=== PATIENT | female | born 1990 | race Caucasian/White ===

== ENCOUNTER 2025-05-31 06:39 | Inpatient (IN) | payer OTHER ==
[~2025-05-31] VITALS: Ht 152.4 cm; Wt 64.4 kg
[2025-05-31 06:45] VITALS: O2SAT 99
[2025-05-31 07:27] LABS: BASOPHILS % 0.2 % (0.0-2.0); EOSINOPHILS % 0.1 % (0.0-5.0); HEMATOCRIT. 34.2 % (36.0-48.0); HEMOGLOBIN. 11.6 g/dL (12.0-16.0); LYMPHOCYTES % 15.3 % (20.0-50.0); MEAN PLATELET VOLUME 7.9 fl (7.4-10.4); MONOCYTES % 3.6 % (2.0-8.0); NEUTROPHILS % 80.8 % (40.0-76.0); PLATELET 333 x1000/uL (130-400); RED BLOOD CELL COUNT 3.82 mill/uL (4.2-5.4); RED CELL DISTRIBUTION WIDTH 13.8 % (11.6-14.6)
[2025-05-31] MEDS: MECLIZINE 25MG TABLET PO ONE (07:28)
[2025-05-31] MEDS: ONDANSETRON 4MG ODT PO ONE (07:28)
[2025-05-31 07:41] LABS: CREATININE 0.7 mg/dL (0.6-1.0); UREA NITROGEN BLOOD 9 mg/dL (9-23)
[2025-05-31 07:43] LABS: ASPARTATE AMINOTRANSFERASE 21 IU/L (<34); BILIRUBIN TOTAL 0.3 mg/dL (0.1-1.0)
[2025-05-31 07:44] LABS: HCG SCREEN NEGATIVE; PROTEIN TOTAL 7.1 g/dL (6.0-8.3)
[2025-05-31 10:45] VITALS: BP 111/68; PULSE 51; RESP 20; TEMP 36.5848
[2025-05-31] MEDS ORDERED: ACETAMINOPHEN 325MG TABLET PO PRN (11:30)
[2025-05-31] MEDS ORDERED: ONDANSETRON HCL 4MG/2ML INJ IV PRN (11:30)
[2025-05-31 12:00] VITALS: BP_SYST 102; BP_SYST 84; BP_SYST 99; BP_DIAS 52; BP_DIAS 61; BP_DIAS 66; PULSE 63; RESP 20; TEMP 36.6
[2025-05-31 15:12] LABS: LDL CHOLESTEROL 152.0 mg/dL (5-100); TRIGLYCERIDE 106.0 mg/dL (0-150)
[2025-05-31 15:28] LABS: VITAMIN B12 SERUM 1311 pg/mL (211-911)
[2025-05-31 16:23] VITALS: BP 91/60; PULSE 57; RESP 20; TEMP 36.5; O2SAT 99
[2025-05-31 20:00] VITALS: BP_SYST 100; BP_SYST 90; BP_SYST 96; BP_DIAS 62; BP_DIAS 63; BP_DIAS 66; PULSE 67; RESP 20; TEMP 37.7; O2SAT 100
[2025-05-31 20:25] LABS: COLOR URINE YELLOW (YELLOW); GLUCOSE URINE NEGATIVE (NEGATIVE); KETONES URINE NEGATIVE (NEGATIVE); LEUKOCYTE ESTERASE URINE NEGATIVE (NEGATIVE); NITRITE URINE NEGATIVE (NEGATIVE); OCCULT BLOOD URINE 3+ (NEGATIVE); PH URINE 5.5 (4.5-8.0); PROTEIN URINE NEGATIVE (NEGATIVE); SPECIFIC GRAVITY URINE 1.011 (1.005-1.030); UROBILINOGEN URINE 0.2 E.U./dL (0.2-1.0)
[2025-05-31 20:28] LABS: *AMPHETAMINES SCREEN URINE NEGATIVE (NEGATIVE); *BARBITURATES SCREEN URINE NEGATIVE (NEGATIVE); *BENZODIAZEPINES SCREEN URINE NEGATIVE (NEGATIVE); *COCAINE SCREEN URINE NEGATIVE (NEGATIVE); CANNABINOID URINE SCREEN NEGATIVE (NEGATIVE); ECSTASY MDMA SCREEN URINE NEGATIVE (NEGATIVE); METHADONE URINE SCREEN NEGATIVE (NEGATIVE); OPIATES URINE SCREEN NEGATIVE (NEGATIVE); PHENCYCLIDINE URINE SCREEN NEGATIVE (NEGATIVE)
[2025-05-31 21:19] LABS: CLARITY URINE HAZY (CLEAR)
[2025-05-31 21:20] LABS: RBC URINE 25-50 /hpf (0-2); WBC URINE 0-2 /hpf (0-2)
[2025-05-31 21:21] LABS: BACTERIA URINE 3+; SQUAMOUS EPITHELIAL CELL URINE RARE /lpf (RARE/1+)
[2025-06-01 04:00] VITALS: BP_SYST 87; BP_SYST 88; BP_SYST 94; BP_DIAS 53; BP_DIAS 56; BP_DIAS 60; TEMP 36.5
[2025-06-01 06:05] LABS: BASOPHILS % 0.2 % (0.0-2.0); EOSINOPHILS % 1.3 % (0.0-5.0); HEMATOCRIT. 34.7 % (36.0-48.0); HEMOGLOBIN. 11.6 g/dL (12.0-16.0); LYMPHOCYTES % 41.7 % (20.0-50.0); MEAN PLATELET VOLUME 8.1 fl (7.4-10.4); MONOCYTES % 7.0 % (2.0-8.0); NEUTROPHILS % 49.8 % (40.0-76.0); PLATELET 310 x1000/uL (130-400); RED BLOOD CELL COUNT 3.84 mill/uL (4.2-5.4); RED CELL DISTRIBUTION WIDTH 13.7 % (11.6-14.6)
[2025-06-01 06:29] LABS: CREATININE 0.7 mg/dL (0.6-1.0)
[2025-06-01 06:30] LABS: UREA NITROGEN BLOOD 9 mg/dL (9-23)
[2025-06-01 08:00] VITALS: BP 90/55; PULSE 57; RESP 19; TEMP 35.9; O2SAT 100
[2025-06-01] MEDS: PANTOPRAZOLE SODIUM 40 MG/VIAL IV SCH (09:25)
[2025-06-01 12:00] VITALS: BP 96/60; PULSE 60; RESP 17; TEMP 36.6; O2SAT 97
[2025-06-01] MEDS: POTASSIUM CHLORIDE 20MEQ TABLET SR PO NR (14:13)
[2025-06-01 16:00] VITALS: BP 101/55; PULSE 65; RESP 17; TEMP 36.7; O2SAT 100
[2025-06-01 20:00] VITALS: BP 100/62; PULSE 59; RESP 18; TEMP 36.6; O2SAT 99
[2025-06-02] VITALS: BP 102/58; PULSE 61; RESP 18; TEMP 36.8; O2SAT 100
[2025-06-02 04:00] VITALS: BP 110/61; PULSE 62; RESP 16; TEMP 36.2; O2SAT 99
[2025-06-02 08:00] VITALS: BP 108/66; PULSE 65; RESP 18; TEMP 36.3; O2SAT 99
[2025-06-02 12:00] VITALS: BP 111/72; PULSE 66; RESP 18; TEMP 36.4; O2SAT 99
[2025-06-02 14:31] VITALS: BP 110/75; PULSE 67; RESP 18; TEMP 98.6
== END 2025-06-02 16:37 | disposition home or self-care (01) | DRG 74 ==
LOC: ER 06:39 → 7WST 08:19 → EDBEDREQTM 08:25 → EDBEDREQ 08:25 → ENRESERV 08:33 → CANRESERV 08:33
PROVIDERS: ADMIT Internal Medicine; ATTEND Internal Medicine
DX: G90.89 Other disorders of autonomic nervous system (principal); E86.0 Dehydration
CPT/HCPCS: 36415; 74176; 80048; 80053; 80061; 80305; 80320; 81003; 82140; 82607; 83036; 84703; 85025; 93005; 93880; 99285; A4606; J2470; J8597; Q0162; G0480